=== PATIENT | male | born 1965 | race African-American/Black ===

== ENCOUNTER 2023-01-30 02:29 | Emergency (ER) | payer MEDICAID ==
[~2023-01-30] VITALS: Ht 182.9 cm; Wt 80.0 kg
[2023-01-30 02:35] VITALS: O2SAT 100
[2023-01-30] MEDS ORDERED: MORPHINE SULFATE 10 MG/ML CPJ IM ONE (03:00)
[2023-01-30] MEDS ORDERED: PROPOFOL 200MG/20ML VIAL IV ONE ×2 (04:30→06:00)
[2023-01-30] MEDS ORDERED: MORPHINE SULFATE 4 MG/ML CPJ (NOT FOR IM USE) IV ONE (05:45)
[2023-01-30 06:00] VITALS: BP 146/90; PULSE 69; RESP 18; TEMP 98.2
[2023-01-30] MEDS ORDERED: HYDROMORPHONE HCL/PF 2MG/ML CPJ IV ONE (06:00)
[2023-01-30] MEDS ORDERED: ACET-2708 MT (07:01)
[2023-01-30] MEDS ORDERED: NAPR-681 MT (07:01)
== END 2023-01-30 07:16 | disposition home or self-care (01) ==
LOC: ER 02:54
DX: S52.121A Displaced fracture of head of right radius, initial encounter for closed fracture (principal); W18.30XA Fall on same level, unspecified, initial encounter; Y93.89 Activity, other specified; Y92.89 Other specified places as the place of occurrence of the external cause; Y99.8 Other external cause status
CPT/HCPCS: 73060; 73080; 73090; 24650; 96372; 96374; 99152; 99285; J2704; J1170; J2270; Z7610 ×3